=== PATIENT | female | born 1990 | race Caucasian/White ===

== ENCOUNTER → 2018-05-26 | Outpatient (CLI) | payer OTHER ==
[~2018-05-26] VITALS: Ht 157.5 cm; Wt 58.0 kg
[~2018-05-26] MED LIST: PRENATAL TABLE1 EAC3 PO
[2018-05-26 09:24] VITALS: BP 121/61
== END | disposition home or self-care (01) ==
LOC: IVINF 08:46
DX: Z34.83 Encounter for supervision of other normal pregnancy, third trimester (principal); Z31.82 Encounter for Rh incompatibility status; Z3A.28 28 weeks gestation of pregnancy; Z67.91 Unspecified blood type, Rh negative
CPT/HCPCS: 96372; J2790